=== PATIENT | female | born 1995 | race Asian ===

== ENCOUNTER 2017-12-21 11:30 | Emergency (ER) | payer MEDICAID, OTHER ==
[~2017-12-21] VITALS: Ht 170.2 cm; Wt 95.6 kg
[2017-12-21 11:34] VITALS: BP 128/86
[2017-12-21] MEDS ORDERED: LIDOCAINE-MPF 2%, 2ML ONE (11:53)
[2017-12-21] MEDS ORDERED: LIDOCAINE-MPF 1%, 5ML INFIL ONE (12:00)
== END 2017-12-21 12:41 | disposition home or self-care (01) ==
LOC: ED 12:35
DX: L05.01 Pilonidal cyst with abscess (principal)
CPT/HCPCS: 10080; 99284

== ENCOUNTER 2017-12-23 11:46 | Emergency (ER) | payer OTHER ==
[~2017-12-23] VITALS: Ht 170.2 cm; Wt 94.7 kg
[2017-12-23 11:55] VITALS: BP 128/63
== END 2017-12-23 12:53 | disposition home or self-care (01) ==
LOC: ED 12:38
DX: L05.01 Pilonidal cyst with abscess (principal)
CPT/HCPCS: 99282